=== PATIENT | female | born 1970 | race African-American/Black ===

== ENCOUNTER 2016-03-16 12:19 | Emergency (ER) | payer OTHER ==
[~2016-03-16] VITALS: Ht 165.1 cm; Wt 81.6 kg
[2016-03-16 12:34] VITALS: BP 135/70
[2016-03-16] MEDS ORDERED: POLYMYXIN B-TMP10 ML OPH (14:02)
--- NOTE | 2016-03-16 14:02 | ED EYE COMPLAINT ---
History of Present Illness General Chief Complaint: Eye Problems Stated Complaint: ?PINK EYE IN BOTH EYES Source: patient Exam Limitations: no limitations Vital Signs & Intake/Output Vital Signs & Intake/Output Vital Signs Date Time Temp Pulse Resp B/P Pulse O2 O2 Flow FiO2 Ox Delivery Rate 03/16 1234 99.4 77 16 135/70 99 Room Air Allergies Coded Allergies: NO KNOWN ALLERGIES (11/22/10) Triage Note: PT STATES WHEN SHE WOKE THIS AM HER EYES WERE "GLUED TOGETHER WITH GOOK". PT STATES SHE CLEANED HER DOG EYES OUT LAST NIGHT AND IS UNSURE IF SHE CAUGHT SOMETHING FROM THE DOG. Triage Nurses Notes Reviewed? yes : No Patient currently breastfeeds: No HPI: This patient is a 45-year-old female who presented to the emergency department today for evaluation of eye drainage. The patient reported that she woke up this morning with, "my eyes glued shut with gunk." She reported that they have been red with pus draining from them today. The patient did report that she was cleaning her daughter's eyes out yesterday and did not wash her hands afterwards. She denies any eye pain or sensation of a foreign body. She denied any photophobia. The patient denied any change to the skin around her eyes. She denied any headaches, throat pain, ear pain, or any coryza symptoms. No chest pain or difficulty breathing. (NATALEE WILKINS PA-C) Reconcile Medications Polymyxin B Sulf/Trimethoprim (Polymyxin B-Tmp Eye Drops) 10,000 UNIT-1 MG/ML DROPS 1 GTT OPH TID conjunctivitis (VESNA CARLIN MD) Past History Travel History Traveled to [place] past 21 day No Medical History Any Pertinent Medical History? see below for history Surgical History Surgical History: non-contributory Psychosocial History What is your primary language Rwandan Tobacco Use: Never used ETOH Use: occasional use Illicit Drug Use: denies illicit drug use Family History Hx Contributory? No (NATALEE WILKINS PA-C) Review of Systems Review of Systems Constitutional: Reports: no symptoms. Eyes: Reports: see HPI. Ear: Reports: no symptoms. Nose: Reports: no symptoms. Mouth: Reports: no symptoms. Throat: Reports: no symptoms. Respiratory: Reports: no symptoms. Cardiovascular: Reports: no symptoms. GI: Reports: no symptoms. Musculoskeletal: Reports: no symptoms. Skin: Reports: no symptoms. Neurological/Psychological: Reports: no symptoms. All Other Systems: Reviewed and Negative (NATALEE WILKINS PA-C) Physical Exam General Appearance: well developed/nourished, no apparent distress, alert, awake General Inspection: no periorbital erythema or edema. No proptosis. Conjunctival injection. Purulent drainage from the eye.PERRLA. EOMI General Inspection: no periorbital erythema or edema. No proptosis. No evidence of foreign body. Conjunctival injection. PERRLA. EOMI Physical Exam Comments: Well-developed well-nourished person in no acute distress HEENT: Head normocephalic, moist mucous membranes Neck: Supple, no lymphadenopathy Back: Normal gait Respiratory: No respiratory distress. Speaking in full sentences Extremity: Normal and equal pulses Neuro: Alert oriented x3, cranial nerves II through XII grossly intact. Skin: No appreciable rash on exposed skin, skin is warm and dry. Psych: Mood and affect is normal (NATALEE WIKLINS PA-C) Progress Differential Diagnosis: corneal abrasion, corneal foreign body, conjunctivitis, detached retina, glaucoma, globe rupture, retinal art./v. occlusion Plan of Care: This patient is a 45-year-old female who presented to the emergency department today for evaluation of bilateral eye redness. This patient woke up with purulent drainage from her eyes. Conjunctival injection on physical examination. No other abnormalities of the eye on physical examination. Likely bacterial conjunctivitis. This patient will be given an gamma facilities operator to follow up with as well as antibiotic eyedrops. She was also requesting the name of a ship's captain to follow up with. Stable for discharge home. (NATALEE WILKINS PA-C) Departure Departure Disposition: HOME OR SELF CARE Condition: Stable Clinical Impression Primary Impression: Conjunctivitis Qualifiers: Conjunctivitis type: unspecified Laterality: bilateral Qualified Code: H10.9 - Unspecified conjunctivitis Referrals: TIERRA YU APRN (PCP/Family) ELIZABETH SCHAEFER,MUNA HAYES MD,JAMEY Clark Additional Instructions: Use eyedrops as prescribed. You may follow-up with the gamma facilities operator's information has been provided to you. Practice good hand hygiene to avoid spread. Return to the emergency department for any worsening symptoms or concerns. Departure Forms: Customer Survey General Discharge Information Prescriptions: Current Visit Scripts Polymyxin B Sulf/Trimethoprim (Polymyxin B-Tmp Eye Drops) 1 GTT OPH TID #10 ML (FRANKY BURKS,NATALEE) PA/APPLICATIONS PACKAGER Co-Sign Statement Statement: ED Attending supervision documentation- [] I saw and evaluated the patient. I have also reviewed all the pertinent lab results and diagnostic results. I agree with the findings and the plan of care as documented in the PA's/APPLICATIONS PACKAGER's documentation. x I have reviewed the ED Record and agree with the PA's/APPLICATIONS PACKAGER's documentation. [] Additions or exceptions (if any) to the PAs/APPLICATIONS PACKAGER's note and plan are summarized below: [] (TESFAYE SCHAEFER,VESNA)
== END 2016-03-16 14:02 ==
LOC: ERH 12:19
DX: H10.9 Unspecified conjunctivitis (principal)

== ENCOUNTER 2016-06-10 14:37 | Emergency (ER) | payer OTHER ==
[~2016-06-10] VITALS: Ht 165.1 cm; Wt 81.6 kg
[~2016-06-10 14:37] MED LIST: POLYMYXIN B-TMP10 ML OPH
[2016-06-10 14:42] VITALS: BP 113/77
--- NOTE | 2016-06-10 15:07 | ED INFLUENZA/URI COMPLAINT ---
History of Present Illness General Chief Complaint: Upper Respiratory Sx/Fever Stated Complaint: COUGH, CONGESTION, FEVER, X 7 DAYS Source: patient Exam Limitations: no limitations Vital Signs & Intake/Output Vital Signs & Intake/Output Vital Signs Date Time Temp Pulse Resp B/P Pulse O2 O2 Flow FiO2 Ox Delivery Rate 06/10 1505 98 06/10 1442 99.0 92 18 113/77 98 Room Air Allergies Coded Allergies: NO KNOWN ALLERGIES (11/22/10) Reconcile Medications Azithromycin (Zithromax) 500 MG TABLET 1 TAB PO DAILY BRONCHITIS Benzonatate (Tessalon Perle) 100 MG CAPSULE 1 CAP PO TID PRN COUGH Codeine Phosphate/Guaifenesi (Cheratussin AC Syrup) 10 MG-100 MG/5 ML LIQUID 10 ML PO QPM PRN COUGH Methylprednisolone. (Medrol) 4 MG TAB.DS.PK 1 DP PO AD INFLAMMATION 6 on day 1 then reduce by one tablet daily until gone Polymyxin B Sulf/Trimethoprim (Polymyxin B-Tmp Eye Drops) 10,000 UNIT-1 MG/ML DROPS 1 GTT OPH TID conjunctivitis Triage Note: PT STATES HER CHEST IS BURNING AND HER HEAD HURTS COUGHING FOR 7 DAYS. PT THINKS SHE HAS PNEUMONIA PT REPORTS LARGE AMOUNTS OF GREEN SPUTUM. Triage Nurses Notes Reviewed? yes Onset: Gradual Duration: constant Timing: recent history Severity: moderate Severity Numbers: 5 : No Patient currently breastfeeds: No HPI: Patient is a 46-year-old female with an unremarkable past medical history presents to emergency room stating for the past 5-7 days she's had persistent per cough pleuritic chest pain upon coughing low-grade fevers and generalized weakness and fatigue. Patient does state that she had resolved course voice. Patient has an taking home remedies for her symptoms. Positive sick contacts Past History Travel History Traveled to [place] past 21 day No Medical History Any Pertinent Medical History? none Surgical History Surgical History: non-contributory Psychosocial History What is your primary language Swedish Tobacco Use: Never used ETOH Use: occasional use Illicit Drug Use: denies illicit drug use Family History Hx Contributory? No Review of Systems Review of Systems Constitutional: Reports: no symptoms. EENTM: Reports: see HPI. Respiratory: Reports: see HPI, cough. Cardiovascular: Reports: no symptoms. GI: Reports: no symptoms. Genitourinary: Reports: no symptoms. Musculoskeletal: Reports: no symptoms. Skin: Reports: no symptoms. Neurological/Psychological: Reports: no symptoms. Hematologic/Endocrine: Reports: no symptoms. Immunologic/Allergic: Reports: no symptoms. All Other Systems: Reviewed and Negative Physical Exam Physical Exam General Appearance: no apparent distress, alert, comfortable Ears, Nose, Throat: normal ENT inspection, moist mucous membrane, hearing grossly normal Comments: Well-developed well-nourished person in no acute distress HEENT: Normal EENT exam, extraocular motion intact, no nystagmus. Pupils equally round and reactive to light and accommodation. Nose is atraumatic. External auditory canal and Tympanic membranes clear. Pharynx normal. No swelling or edema. Neck: Supple, no lymphadenopathy, normal range of motion without pain or tenderness Back: Nontender, no CVA tenderness. Cardiovascular: Regular rate and rhythms no murmurs rubs or gallops, normal JVP Respiratory: Chest nontender. No respiratory distress.breath sounds clear to auscultation bilaterally Abdomen: Soft, nontender nondistended, no appreciable organomegaly. Normal bowel sounds. No ascites Extremity: No edema, no calf tenderness to palpation, normal and equal pulses. Neuro: Alert oriented x3, motor sensory normal, Skin: No appreciable rash on exposed skin, skin is warm and dry. Psych: Mood and affect is normal, memory and judgment is normal. Core Measures Severe Sepsis Present: No Septic Shock Present: No Progress Differential Diagnosis: influenza, meningitis, neutropenia, otitis, pneumonia, pharyngitis, sinusitis Plan of Care: Patient currently looks well no apparent distress afebrile nontoxic appearing clear lungs to auscultation ENT exam was unremarkable. Initial ED EKG: none Departure Departure Disposition: HOME OR SELF CARE Condition: Stable Clinical Impression Primary Impression: Bronchitis Referrals: TIERRA YU APRN (PCP/Family) Additional Instructions: As discussed begin the prescription of azithromycin for the full course, begin the prescription of Cheratussin and Tessalon Perles for cough in the prescription of Medrol Dosepak for inflammation. Prescription is waiting at [facility] pharmacy. If no better next week follow-up with her primary care doctor. If symptoms worsen return to emergency room Departure Forms: Customer Survey General Discharge Information Prescriptions: Current Visit Scripts Azithromycin (Zithromax) 1 TAB PO DAILY #5 TAB Benzonatate (Tessalon Perle) 1 CAP PO TID PRN COUGH #21 CAP Methylprednisolone. (Medrol) 1 DP PO AD #1 DP 6 on day 1 then reduce by one tablet daily until gone Codeine Phosphate/Guaifenesi (Cheratussin AC Syrup) 10 ML PO QPM PRN COUGH #100 ML
[2016-06-10] MEDS ORDERED: ZITHROMAX500 M2 PO (15:24)
[2016-06-10] MEDS ORDERED: TESSALON PERLE100 M1 PO (15:24)
[2016-06-10] MEDS ORDERED: MEDROL4 M2 PO (15:24)
[2016-06-10] MEDS ORDERED: CHERATUSSIN AC118 M1 PO (15:24)
== END 2016-06-10 15:33 ==
LOC: ERH 14:37
DX: J40 Bronchitis, not specified as acute or chronic (principal); R07.89 Other chest pain

== ENCOUNTER 2016-07-20 00:10 | Emergency (ER) | payer OTHER ==
[~2016-07-20] VITALS: Ht 165.1 cm; Wt 81.6 kg
[~2016-07-20 00:10] MED LIST changes: +CHERATUSSIN AC118 M1 PO; +MEDROL4 M2 PO; +TESSALON PERLE100 M1 PO; +ZITHROMAX500 M2 PO
[2016-07-20] MEDS ORDERED: TESSALON PERLE100 M1 PO (04:07)
[2016-07-20] MEDS ORDERED: ZITHROMAX250 M2 PO (04:07)
--- NOTE | 2016-07-20 04:08 | ED INFLUENZA/URI COMPLAINT ---
History of Present Illness General Chief Complaint: Sore Throat, Dental Pain Stated Complaint: "SORE THROAT, FEELS LIKE TROAT CLOSING,SPO2 98" Source: patient Exam Limitations: no limitations Vital Signs & Intake/Output Vital Signs & Intake/Output Vital Signs Date Time Temp Pulse Resp B/P B/P Pulse O2 O2 Flow FiO2 Mean Ox Delivery Rate 07/20 0030 98.0 74 16 103/69 98 Room Air Allergies Coded Allergies: NO KNOWN ALLERGIES (11/22/10) Reconcile Medications Azithromycin (Zithromax) 500 MG TABLET 1 TAB PO DAILY BRONCHITIS Benzonatate (Tessalon Perle) 100 MG CAPSULE 1 CAP PO TID PRN COUGH Codeine Phosphate/Guaifenesi (Cheratussin AC Syrup) 10 MG-100 MG/5 ML LIQUID 10 ML PO QPM PRN COUGH Methylprednisolone. (Medrol) 4 MG TAB.DS.PK 1 DP PO AD INFLAMMATION 6 on day 1 then reduce by one tablet daily until gone Polymyxin B Sulf/Trimethoprim (Polymyxin B-Tmp Eye Drops) 10,000 UNIT-1 MG/ML DROPS 1 GTT OPH TID conjunctivitis Triage Note: 46YO FEMALE TO TRIAGE W/CO "THROAT CLOSING, COUGHIN JUST LKIE THE BRONCHITIS I HAD 1 MONTH AGO" RA SAT AT TRIAGE = 98. Triage Nurses Notes Reviewed? yes : No Patient currently breastfeeds: No HPI: Patient presents for evaluation of a sore throat with painful swallowing and cough productive of thick phlegm. Patient states symptoms began today but have gotten worse. Symptoms have been more or less constant but fluctuating in intensity. Nothing seems to make her feel better. She denies fever but has felt cold from time to time. Past History Travel History Traveled to [place] past 21 day No Medical History Any Pertinent Medical History? see below for history Surgical History Surgical History: non-contributory Psychosocial History What is your primary language Faroese Tobacco Use: Never used Family History Hx Contributory? No Review of Systems Review of Systems Constitutional: Reports: no symptoms. EENTM: Reports: see HPI. Respiratory: Reports: see HPI. Cardiovascular: Reports: no symptoms. GI: Reports: no symptoms. Genitourinary: Reports: no symptoms. Musculoskeletal: Reports: no symptoms. Skin: Reports: no symptoms. Neurological/Psychological: Reports: no symptoms. Hematologic/Endocrine: Reports: no symptoms. Immunologic/Allergic: Reports: no symptoms. All Other Systems: Reviewed and Negative Physical Exam Physical Exam Ears, Nose, Throat: See below Comments: Gen.: Well-nourished, well-developed, no acute respiratory distress. Head: Normocephalic, atraumatic. Eyes: Normal inspection bilaterally Ears: Normal inspection bilaterally Nose: Normal inspection Throat/mouth : Moist mucosa, mild oropharyngeal erythema without exudates Neck: Supple, full range of motion, no goiter Heart: Regular rate and rhythm, no murmurs rubs or gallops Lungs: Clear to auscultation bilaterally with normal air entry Chest: Nontender Back: Normal range of motion Abdomen: Soft, nontender, nondistended, normal bowel sounds Extremities: Normal range of motion grossly, equal radial pulses, no cyanosis clubbing or edema Neurologic: Cranial nerves grossly intact, speech is clear Skin: warm and dry Psychiatric: Calm, cooperative, no apparent delusions or hallucinations Lymphatic: No cervical lymphadenopathy Core Measures Severe Sepsis Present: No Septic Shock Present: No Progress Differential Diagnosis: pneumonia, pharyngitis, bronchitis Plan of Care: Antibiotics, cough medication Initial ED EKG: none Departure Departure Disposition: HOME OR SELF CARE Condition: Stable Clinical Impression Primary Impression: Acute bronchitis Qualifiers: Bronchitis organism: unspecified organism Qualified Code: J20.9 - Acute bronchitis, unspecified Secondary Impressions: Pharyngitis Qualifiers: Pharyngitis/tonsillitis etiology: unspecified etiology Qualified Code: J02.9 - Acute pharyngitis, unspecified Referrals: TIERRA YU APRN (PCP/Family) Additional Instructions: Azithromycin as prescribed. Tessalon Perles as needed for cough. Follow up with your primary care doctor in 1 week if not improved. Return if any concerns or sudden worsening. Thank you for choosing the [facility] for your care. It was a pleasure to serve you today. Martin Brown M.D. [facility] Departure Forms: Customer Survey General Discharge Information Prescriptions: Current Visit Scripts Azithromycin (Zithromax) 1 DP PO AD #6 TAB 2 the first day followed by 1 for days 2-5 Benzonatate (Tessalon Perle) 1 CAP PO TID PRN cough #21 CAP
[2016-07-20 04:19] VITALS: BP 101/57
== END 2016-07-20 04:19 ==
LOC: ERH 00:10
DX: J20.9 Acute bronchitis, unspecified (principal); J02.9 Acute pharyngitis, unspecified